=== PATIENT | female | born 1990 | race Caucasian/White ===

== ENCOUNTER 2019-08-18 11:06 | Emergency (ER) | payer SELFPAY ==
[2019-08-18 11:49] VITALS: BP 131/92; PULSE 106; RESP 16; TEMP 37.1; O2SAT 98; BMI 27.3
--- NOTE | 2019-08-18 12:20 | XR_ITS ---
WS: [id number] Chest 2 views, 08/18/2019 Clinical Data: short of breath Comparison: Portable chest, 06/29/2016. Findings: No nodules, masses or effusions are seen. The heart is normal. The pulmonary vascularity is not increased. No pneumonia or pneumothorax is seen. XR/XR chest 2V* [id number] Impression: Negative chest.
--- NOTE | 2019-08-18 12:39 | W.ED.URI ---
HPI - URI/Sore Throat General: Chief Complaint: Upper Respiratory Infection Stated Complaint: bady ache/fevers Time Seen by Provider: 08/18/19 12:30 Source: patient Mode of arrival: ambulatory Limitations: no limitations History of Present Illness: HPI Narrative: Patient comes in with a 3-day history of cough and fever. Patient has been exposed to the flu. Patient was concerned for pneumonia. Patient reports no chronic medical history. Associated symptoms: Reports fever(s) Review of Systems General: Reports: 10 or more systems reviewed and unremarkable except in HPI and below Const: Reports: fever Resp: Reports: non-productive cough PFSH ED PFSH: Social History Smoking and tobacco status: current every day smoker Female Reproductive History: Date of last menstrual period: 08/04/19 Physical Exam Const: COMMON NORMALS: no apparent distress and oriented x3 GENERAL APPEARANCE: cooperative HENMT: COMMON NORMALS: normocephalic, external ears normal, EAC's normal, TM's normal bilaterally and external nose normal HEAD & SCALP: normal to inspection and normocephalic FACE & SINUS: normal facial exam NOSE: external nose normal GENERAL EAR: hearing not grossly impaired EXTERNAL EAR: Yes external ears normal EXTERNAL AUDITORY CANAL: EAC's normal TYMPANIC MEMBRANE: TM's normal bilaterally MOUTH: oral and palatal mucosa normal THROAT: posterior oropharynx abnormal erythema Eye: COMMON NORMALS: PERRL and EOMs intact bilaterally PUPIL: Yes PERRL Neck/C-Spine: COMMON NORMALS: full ROM and no lymphadenopathy Lymph: LYMPHATIC: no lymphedema noted Chest: COMMONS NORMALS: inspection of chest normal and palpation of chest normal Resp: COMMON NORMALS: normal respiratory effort and clear to auscultation bilaterally AUSCULTATION: clear to auscultation bilaterally Cardio: COMMON NORMALS: regular rate and regular rhythm RATE: regular rate RHYTHM: regular rhythm GI: COMMON NORMALS: normal to inspection, nondistended, normoactive bowel sounds and non-tender : COMMON NORMALS: Yes no CVA tenderness BLADDER/KIDNEY EXAM: Yes no CVA tenderness Back/Pelvis: COMMON NORMALS: no CVA tenderness and thoracic and lumbar spine normal to inspection Extremity: COMMON NORMALS: normal to inspection GENERAL: No edema Neuro: COMMON NORMALS: oriented x3, moves all extremities and no focal motor deficits Psych: COMMON NORMALS: mental status grossly normal and cooperative Skin: COMMON NORMALS: no rashes or lesions noted GENERAL SKIN EXAM: no rashes or lesions noted Course Vital Signs: Vital signs: Vital Signs Temperature 98.7 F 08/18/19 11:49 Pulse Rate 106 H 08/18/19 11:49 Respiratory Rate 16 08/18/19 11:49 Blood Pressure 131/92 08/18/19 11:49 Pulse Oximetry 98 08/18/19 11:49 MDM - URI/Sore Throat MDM Narrative: Medical decision making narrative: Patient comes in with cough and congestion for the last 3 days. Patient reports exposure to the flu. On exam posterior pharynx is slightly erythematous, lungs are clear to auscultation. Differential diagnosis includes pneumonia, influenza, bronchitis, upper respiratory infection. X-rays were negative for any pneumonia. Flu test was negative. Patient was given a dose of Decadron. Encourage plenty of fluids Tylenol and ibuprofen for pain and fever. Reviewed usual course for the flu and recommendations for treatment of. Patient reports understanding agreed to plan. Lab Data: Labs: Lab Results 08/18/19 Range/Units 12:46 Influenza Type A A g Negative (Negative) POC Influenza B Ag Negative (Negative) Discharge Plan Discharge Patient Disposition: Home, Self-Care Clinical Impression: Influenza Condition: Stable Prescriptions: No Action No Known Home Medications RF: 0 Discharge Orders: Discharge Order (Routine); Ordered 08/18/19 Ordered By: Clinton Napier Referrals: YIFAN [Other] Discharge Diet: Usual diet Discharge Activity: Increase activity as tolerated Patient Instructions: Influenza (ED) Activity Restrictions/Additional Instructions: Drink plenty of fluids Acetaminophen and ibuprofen for pain and fever Follow-up with primary care in one week Return to ER as needed for worsening symptoms Stand Alone Forms: Work/School Release Coding Level of Care Code ED Supervisory Historian for Chg Fwd Exam Comprehensive
[2019-08-18] MEDS: dexamethasone 10 mg/mL INJ IM (13:05)
[2019-08-18 13:42] LABS: Influenza A by IFA Negative (Negative); Influenza B by IFA Negative (Negative)
[2019-08-18 14:00] VITALS: BP 98/59; PULSE 109; RESP 17; O2SAT 97
== END 2019-08-18 14:00 | disposition home or self-care (01) ==
LOC: ER 13:05
PROVIDERS: Emergency Provider Nurse Practitioner Family; PCP Nurse Practitioner Family
DX: J11.1 Influenza due to unidentified influenza virus with other respiratory manifestations (principal); F17.210 Nicotine dependence, cigarettes, uncomplicated
CPT/HCPCS: 71046; 87804; 96372; 99282; 99283; J1100

== ENCOUNTER 2019-08-31 13:26 | Emergency (ER) | payer SELFPAY ==
[2019-08-31 13:36] VITALS: BP 111/61; PULSE 84; RESP 16; TEMP 36.9; O2SAT 98; BMI 27.3
[2019-08-31 14:11] VITALS: BP 101/63; PULSE 72; RESP 17; O2SAT 97
--- NOTE | 2019-08-31 14:12 | PC.NURSE ---
Patient reports that she has been sick for about a week and half. Patient states that her symptoms are not getting any better. Patient reports the her right ear now hurts and her cough has got much worse. Patient states she was seen here a week and half ago and was treated like it was the flu.
--- NOTE | 2019-08-31 14:22 | W.ED.GENADLT ---
HPI - General Adult General: Chief complaint: General Medical Stated complaint: Cough/Fever/Earache Time Seen by Provider: 08/31/19 14:15 Source: patient Mode of arrival: ambulatory Limitations: no limitations History of Present Illness: HPI narrative: Patient is a 29-year-old female who presents to ED today with complaints of a productive cough, chest congestion, sinus pain/pressure, nasal congestion, ear pain/pressure, intermittent fevers that have been present over the past approximately 2 weeks. Patient was seen here approximately a week and a half ago and diagnosed with probable influenza. She states she does not seem to be improving. Patient is an everyday smoker. Last fever she states was 48 hours ago. She has not had any vomiting or diarrhea. Onset (ago): day(s) Relieving factors: none Exacerbating factors: none Associated symptoms: Deny chest pain, dyspnea, headache(s), malaise, nausea, rash, palpitations, syncope or vomiting Review of Systems Const: Reports: fever; Denies: chills, body aches, change in appetite, change in weight, fatigue, malaise or night sweats Eyes: Denies: change in vision, blurry vision, photophobia, eye discomfort or eye discharge ENMT: Reports: ear pain, nasal discharge and nasal congestion; Denies: throat pain, enlarged tonsils, painful swallowing, swelling of lips/tongue, oral sores/lesions, ear discharge, post nasal drip or facial/sinus pain Card: Denies: chest pain, palpitations, irregular heart rhythm, edema, lightheadedness, syncope or pre-syncope Resp: Reports: productive cough and chest congestion; Denies: shortness of breath, non-productive cough or coughing up blood GI: Denies: abdominal pain, nausea, vomiting or diarrhea Musc: Denies: neck pain or back pain Skin/Breast: Denies: rash Neuro: Denies: headache, numbness in extremities, weakness in extremities or changes in sensation All/Imm: Denies: facial swelling or seasonal allergies PFS ED PFSH: Social History Smoking and tobacco status: current every day smoker Female Reproductive History: Date of last menstrual period: 08/04/19 Physical Exam Const: COMMON NORMALS: no apparent distress, average body habitus, oriented x3, no limitations, healthy appearing, alert and well nourished HENMT: COMMON NORMALS: normocephalic, head/scalp atraumatic, hearing grossly normal bilaterally, external ears normal, EAC's normal, TM's normal bilaterally, moist oral mucous membranes and oropharynx normal HEAD & SCALP: normocephalic and atraumatic FACE & SINUS: sinus tenderness maxillary (bilaterally) and other (nasal congestion present) EXTERNAL EAR: Yes external ears normal EXTERNAL AUDITORY CANAL: EAC's normal TYMPANIC MEMBRANE: TM's normal bilaterally THROAT: posterior oropharynx normal, tonsils normal and uvula midline Eye: COMMON NORMALS: PERRL, EOMs intact bilaterally, conjunctivae normal and no scleral icterus CONJUNCTIVA: Yes conjunctivae normal PUPIL: Yes PERRL Neck/C-Spine: COMMON NORMALS: full ROM, no lymphadenopathy and no meningeal signs Resp: COMMON NORMALS: normal respiratory effort and clear to auscultation bilaterally AUSCULTATION: clear to auscultation bilaterally OTHER: course sounding cough Cardio: COMMON NORMALS: regular rate and regular rhythm RATE: regular rate RHYTHM: regular rhythm Extremity: COMMON NORMALS: normal to inspection Neuro: COMMON NORMALS: oriented x3 SENSORIUM/ORIENTATION: Yes alert MENINGEAL SIGNS: Yes no meningeal signs Skin: COMMON NORMALS: no rashes or lesions noted GENERAL SKIN EXAM: no rashes or lesions noted Course Vital Signs: Vital signs: Vital Signs Temperature 98.5 F 08/31/19 13:36 Pulse Rate 72 08/31/19 14:11 Respiratory Rate 17 08/31/19 14:11 Blood Pressure 101/63 08/31/19 14:11 Pulse Oximetry 97 08/31/19 14:11 MDM - General Adult Lab Data: Labs: Lab Results 08/31/19 Range/Units 14:39 Influenza Type A A g Negative (Negative) POC Influenza B Ag Negative (Negative) Imaging Data^: CXR: Radiologist's impression: [address] [address] XRay Report Signed Patient: Cynthia Barton Unit #: [id number] : 1990 Age/Sex: 29 / F ADM Date: 08/31/19 Loc: ER Room/Bed: Attending Dr: Ordering Provider/Ordering MD: Ermelinda Grant Date of Service: 08/31/19 Procedure(s): XR chest 1V portable [id number] Accession Number(s): [id number] Report Number: [id number] PROCEDURE INFORMATION: Exam: XR Chest, 1 View Exam date and time: 08/31/2019 2:50 PM Age: 29 years old Clinical indication: Cough and fever; Additional info: Cough/congestion, fever TECHNIQUE: Imaging protocol: XR of the chest Views: 1 view. Other technique: Frontal portable upright view of the chest. COMPARISON: CR XR chest 2V* [id number] 08/18/2019 12:37 PM FINDINGS: Lungs: Patchy left infrahilar retrocardiac airspace opacity. The lungs are otherwise clear bilaterally. The pulmonary vasculature is normal. Pleural space: No pleural effusion. No pneumothorax. Heart/Mediastinum: The heart is normal in size and contour. Mediastinum: Stable. Bones/joints: Stable. XR/XR chest 1V portable [id number] IMPRESSION: Patchy left infrahilar retrocardiac airspace opacity. Pneumonitis is difficult to exclude. Clinical correlation is recommended. Dictated By: Nadeem Guan MD Signed By: Nadeem Guan MD Signed Date/Time: 08/31/191538 DD/ 37 Discharge Plan Discharge Patient Disposition: Home, Self-Care Clinical Impression: Viral URI with cough Pneumonia Qualifiers: Pneumonia type: due to unspecified organism Laterality: left Lung location: unspecified part of lung Qualified Code(s): J18.9 - Pneumonia, unspecified organism Condition: Stable Prescriptions: New promethazine-codeine 6.25-10 mg/5 mL syrup 5 ml PO Q6H PRN (Reason: cough) Qty: 100 RF: 0 doxycycline monohydrate 100 mg capsule 100 mg PO Q12H 10 Days Qty: 20 RF: 0 Discharge Orders: Discharge Order (Routine); Ordered 08/31/19 Ordered By: Ermelinda Grant Referrals: YIFAN [Other] Discharge Diet: Usual diet Discharge Activity: Increase activity as tolerated Patient Instructions: Viral Syndrome (ED), Pneumonia (ED), Upper Respiratory Infection - Adult Activity Restrictions/Additional Instructions: Return to the emergency department for worsening symptoms, uncontrollable fevers, worsening cough, shortness of breath, chest pains, feeling generally worse, or any other symptoms you may have. Coding Level of Care Code ED Construction Services Technician for Chg Fwd Exam Comprehensive
--- NOTE | 2019-08-31 14:30 | XRR_ITS ---
PROCEDURE INFORMATION: Exam: XR Chest, 1 View Exam date and time: 08/31/2019 2:50 PM Age: 29 years old Clinical indication: Cough and fever; Additional info: Cough/congestion, fever TECHNIQUE: Imaging protocol: XR of the chest Views: 1 view. Other technique: Frontal portable upright view of the chest. COMPARISON: CR XR chest 2V* [id number] 08/18/2019 12:37 PM FINDINGS: Lungs: Patchy left infrahilar retrocardiac airspace opacity. The lungs are otherwise clear bilaterally. The pulmonary vasculature is normal. Pleural space: No pleural effusion. No pneumothorax. Heart/Mediastinum: The heart is normal in size and contour. Mediastinum: Stable. Bones/joints: Stable. XR/XR chest 1V portable [id number] IMPRESSION: Patchy left infrahilar retrocardiac airspace opacity. Pneumonitis is difficult to exclude. Clinical correlation is recommended.
[2019-08-31 15:09] LABS: Influenza A by IFA Negative (Negative); Influenza B by IFA Negative (Negative)
[2019-08-31 15:55] VITALS: BP 107/72; PULSE 63; RESP 18; O2SAT 99
== END 2019-08-31 15:58 | disposition home or self-care (01) ==
PROVIDERS: Emergency Provider Physician Assistant; PCP Nurse Practitioner Family
DX: J06.9 Acute upper respiratory infection, unspecified (principal); R05 Cough; F17.200 Nicotine dependence, unspecified, uncomplicated
CPT/HCPCS: 12345; 71045; 87804; 99281; 99283

== ENCOUNTER 2023-03-07 17:44 | Emergency (ER) | payer OTHER, SELFPAY ==
[2023-03-07 17:47] VITALS: BP 124/93; PULSE 103; RESP 18; TEMP 36.6; O2SAT 97; BMI 23.0
--- NOTE | 2023-03-07 18:08 | W.ED.PSYCHS ---
HPI - Psych General: Chief Complaint: Psychiatric Symptoms Stated Complaint: si Time Seen by Provider: 03/07/23 18:03 History of Present Illness: Patient presents to the ER by law enforcement mental health evaluation. Patient went to court today and found that she is having to stay in group home for 40 days now she stressed out about losing her child in her house and is very emotional and stressed out. Patient denies any suicidal or homicidal ideation. Review of Systems General: Reports: 10 or more systems reviewed and unremarkable except in HPI and below PFSH ED PFSH: Social History Smoking and tobacco status: current every day smoker Physical Exam Const: COMMON NORMALS: no acute distress, average body habitus, patient oriented x3, no limitations, healthy appearing, alert and well nourished HENMT: COMMON NORMALS: normocephalic, atraumatic, hearing grossly normal bilaterally, external ears normal, Normal external nose present and moist oral mucous membranes HEAD & SCALP: normocephalic and atraumatic NOSE: Normal external nose present EXTERNAL EAR: Yes external ears normal Eye: COMMON NORMALS: Equal, round and reactive pupils present, EOMs intact bilaterally, conjunctivae normal and no scleral icterus CONJUNCTIVA: Yes conjunctivae normal PUPIL: Yes Equal, round and reactive pupils present Neck/C-Spine: COMMON NORMALS: full ROM, no lymphadenopathy, supple, no meningeal signs, no JVD and Thyroid normal THYROID: Thyroid normal Chest: COMMONS NORMALS: normal inspection of the chest and normal palpation of entire chest wall Resp: COMMON NORMALS: normal respiratory effort, No retractions, No use of accessory muscles and clear to auscultation bilaterally AUSCULTATION: clear to auscultation bilaterally Cardio: COMMON NORMALS: no JVD, regular rate, regular rhythm, S1 normal heart sound present, S2 normal heart sound present, No gallops present (Cardio), No clicks present (Cardio), No murmurs present (Cardio) and No rub (Cardio) RATE: regular rate RHYTHM: regular rhythm HEART SOUNDS: S1 normal heart sound present and S2 normal heart sound present GI: COMMON NORMALS: Normal to inspection, nondistended, normoactive bowel sounds present, Soft to palpation, non-tender, No hepatosplenomegaly present and no masses PALPATION: Yes Soft to palpation and Yes No hepatosplenomegaly present : COMMON NORMALS: Yes no CVA tenderness BLADDER/KIDNEY EXAM: Yes no CVA tenderness Back/Pelvis: COMMON NORMALS: no CVA tenderness Neuro: COMMON NORMALS: patient oriented x3 SENSORIUM/ORIENTATION: Yes alert MENINGEAL SIGNS: Yes no meningeal signs Course Vital Signs: Vital signs: Vital Signs Temperature 97.8 F 03/07/23 17:47 Pulse Rate 103 H 03/07/23 17:47 Respiratory Rate 18 03/07/23 17:47 Blood Pressure 124/93 03/07/23 17:47 Pulse Oximetry 97 03/07/23 17:47 Oxygen Delivery Me thod Room Air 03/07/23 17:47 MDM - Psych Medical Decision Making Patient went to group home today and found no chest pain 40 more days in group home and is afraid to lose her house and her kid. Physical exam was performed lab work was obtained patient denied making suicidal homicidal ideations. Patient be discharged back to group home. Differential Diagnosis Likely suicidal ideation; Unlikely acute psychosis, chronic schizophrenia, bipolar disorder, depression, drug-induced psychotic disorder or acute anxiety Medical Records I reviewed the patient's medical records. Lab Data I reviewed the patient's lab results. 03/07/23 18:23 03/07/23 18: Laboratory Results WBC 7.85 10^3/uL (3.29-11.43) 03/07/23 18: RBC 4.12 10^6/uL (3.85-5.65) 03/07/23 18: Hgb 13.20 g/dL (11.27-16.99) 03/07/23 18: Hct 38.6 % (36-47) 03/07/23 18: MCV 93.7 fl (85-98) 03/07/23 18: MCH 32.0 pg (27-33) 03/07/23 18: MCHC 34.2 g/dL (30-55) 03/07/23 18: RDW 11.9 % (12.1-15.1) L 03/07/23 18: Plt Count 350 10^3/cmm (157-399) 03/07/23 18: MPV 10.0 fL (7.4-10.4) 03/07/23 18: Neut % (Auto) 75.1 % 03/07/23 18:23 Lymph % (Auto) 13.1 % 03/07/23 18:23 Carter % (Auto) 10.3 % 03/07/23 18: Eos % (Auto) 0.8 % 03/07/23 18: Baso % (Auto) 0.3 % 03/07/23 18:23 Neut # (Auto) 5.90 10^3/uL (1.8-7.7) 03/07/23 18: Lymph # (Auto) 1.0 10^3/uL (0.8-4.8) 03/07/23 18: Carter # (Auto) 0.8 10^3/uL (0.2-0.9) 03/07/23 18: Eos # (Auto) 0.1 10^3/uL (0.0-0.8) 03/07/23 18: Baso # (Auto) 0.0 10^3/uL (0.0-0.1) 03/07/23 18: Nucleated RBC % (auto) 0 % 03/07/23 18: Nucleated RBCs # 0.0 /100WBC 03/07/23 18: Sodium 138 mmol/L (136-145) 03/07/23 18: Potassium 4.2 mmol/L (3.5-5.1) 03/07/23 18: Chloride 103 mmol/L (98-107) 03/07/23 18: Carbon Dioxide 27 mmol/L (22-29) 03/07/23 18: Anion Gap 12.2 (5-19) 03/07/23 18: BUN 12 mg/dL (6-20) 03/07/23 18: Creatinine 0.7 mg/dL (0.5-0.9) 03/07/23 18: GFR Calculation 97.0 mL/min (90-130) 03/07/23 18: Glucose 91 mg/dL (65-115) 03/07/23 18: Calculated Osmolality 285 mOsm/kg (285-295) 03/07/23 18: Calcium 9.2 mg/dL (8.5-10.5) 03/07/23 18: Total Bilirubin 0.4 mg/dL (0.15-1.2) 03/07/23 18:23 AST 18 U/L (0-32) 03/07/23 18: ALT 13 U/L (0-33) 03/07/23 18:23 Alkaline Phosphatase 82 U/L (35-105) 03/07/23 18:23 Total Protein 8.3 g/dL (6.6-8.7) 03/07/23 18: Albumin 4.5 g/dL (3.5-5.2) 03/07/23 18: Globulin 3.8 g/dL (1.3-4.6) 03/07/23 18:23 HCG, Qual Negative (Negative) 03/07/23 19:00 Salicylates < 0.3 mg/dL (3-10) L 03/07/23 18: Acetaminophen < 5.0 ug/mL (10-30) L 03/07/23 18:23 Ethyl Alcohol < 10 mg/dL (0-10) 03/07/23 18:23 No radiology studies performed this visit Discharge Plan Discharge Patient Disposition: Home Clinical Impression: Depression, Acute anxiety Condition: Stable Prescriptions: No Action promethazine-codeine 6.25-10 mg/5 mL syrup 5 ml PO Q6H PRN (Reason: cough) Qty: 100 0RF Discharge Orders: Discharge ED (Routine); Ordered 03/07/23 Ordered By: Viral Garcia Referrals: Mara Candelario FNP [Primary Care Provider] - Patient Instructions: Depression (ED), Anxiety (ED) Activity Restrictions/Additional Instructions: Patient was felt to be medically stable and fit for confinement. Patient will be discharged back into police custody. Coding Level of Care Code ED Drilling Engineer for Rufino Collazo
[2023-03-07 19:05] LABS: Basophils % 0.3 %; Eosinophils # 0.1 10^3/uL (0.0-0.8); Eosinophils % 0.8 %; Hematocrit 38.6 % (36-47); Lymphocytes % 13.1 %; Mean Corpuscular HGB Conc 34.2 g/dL (30-55); Mean Corpuscular Volume 93.7 fl (85-98); Monocytes # 0.8 10^3/uL (0.2-0.9); Monocytes % 10.3 %; Neutrophils % 75.1 %; Nucleated Red Blood Cells % 0 %; Platelet Count 350 10^3/cmm (157-399); Red Blood Count 4.12 10^6/uL (3.85-5.65); Red Cell Distribution Width 11.9 % (12.1-15.1); White Blood Count 7.85 10^3/uL (3.29-11.43)
[2023-03-07 19:10] LABS: HCG Qualitative Urine. Negative (Negative)
[2023-03-07 19:25] LABS: Alanine Aminotransferase 13 U/L (0-33); Albumin Level 4.5 g/dL (3.5-5.2); Alkaline Phosphatase 82 U/L (35-105); Anion Gap 12.2 (5-19); Aspartate Amino Transferase 18 U/L (0-32); Blood Urea Nitrogen 12 mg/dL (6-20); Calcium 9.2 mg/dL (8.5-10.5); Carbon Dioxide 27 mmol/L (22-29); Chloride 103 mmol/L (98-107); Globulin 3.8 g/dL (1.3-4.6); Glucose 91 mg/dL (65-115); Osmolality Calculated 285 mOsm/kg (285-295); Potassium 4.2 mmol/L (3.5-5.1); Sodium 138 mmol/L (136-145); Total Bilirubin 0.4 mg/dL (0.15-1.2); Total Protein 8.3 g/dL (6.6-8.7)
[2023-03-07 19:30] LABS: Acetaminophen < 5.0 ug/mL (10-30); Alcohol Level < 10 mg/dL (0-10); Salicylate < 0.3 mg/dL (3-10)
== END 2023-03-07 20:35 | disposition home or self-care (01) ==
PROVIDERS: Emergency Provider Emergency Medicine; PCP Nurse Practitioner Family
DX: F32.A Depression, unspecified (principal); F41.9 Anxiety disorder, unspecified; F17.210 Nicotine dependence, cigarettes, uncomplicated
CPT/HCPCS: 36415; 80053; 80307; 81025; 85025; 99283

== ENCOUNTER 2023-05-11 18:23 | Emergency (ER) | payer OTHER, SELFPAY ==
[2023-05-11 18:30] VITALS: BP 118/81; PULSE 103; RESP 16; TEMP 36.7; O2SAT 98; BMI 23.8
--- NOTE | 2023-05-11 19:37 | W.ED.ALLEREA ---
HPI - Allergic Reaction General: Chief complaint: Allergic Reaction Stated complaint: allergic reaction Time Seen by Provider: 05/11/23 19:37 History of Present Illness: HPI narrative: 33-year-old female presents emergency department with complaints of a rash and irritation to her lips after being around poison zandra that she was burning yesterday. She states that has continued to worsen today. She states she feels like her tongue is slightly swollen she did take Benadryl prior to coming to the emergency department. She states she took that this morning and it did help a little bit but she is concerned as the rash Has spread out over her face more. She denies difficulty with swallowing or breathing at present. She denies nausea or vomiting. Review of Systems General: Reports: 10 or more systems reviewed and unremarkable except in HPI and below Skin/Breast: Reports: rash PFSH ED PFSH: Social History Smoking and tobacco/nicotine status: current every day tobacco/nicotine user Female Reproductive History: Date of last menstrual period: 05/04/23 Physical Exam Narrative: EXAM NARRATIVE: Constitutional: the patient appears well nourished and normally developed. Vital signs as documented. HENMT: head exam is unremarkable. No scleral icterus or corneal arcus noted. Neck is without jugular venous distension, thyromegaly, or carotid bruits. Carotid upstrokes are brisk bilaterally. Lungs are clear to auscultation and percussion. Cardiac exam reveals the PMI to be normally sized and situated. Rhythm is regular. First and second heart sounds normal. No murmurs, rubs or gallops. Abdominal exam reveals normal bowel sounds, no masses, no organomegaly and no aortic enlargement. Extremities are non-edematous and both femoral and pedal pulses are normal. Skin: Erythematous rash covering the face on the chin and both cheeks, small superficial pustules consistent with contact dermatitis noted. There is no irritation to the eyes or the oropharynx at present. Course Vital Signs: Vital signs: Vital Signs Temperature 98.1 F 05/11/23 18:30 Pulse Rate 88 05/11/23 21:23 Respiratory Rate 14 05/11/23 21:23 Blood Pressure 112/67 05/11/23 20:53 Pulse Oximetry 100 05/11/23 21:23 Oxygen Delivery Me thod Room Air 05/11/23 20:53 MDM - Allergic Reaction Medical Decision Making Physical exam completed and documented, findings are consistent with contact dermatitis I will provide intramuscular Benadryl and corticosteroid as well as a written prescription for prednisone at the time of discharge. Medical Records I reviewed the patient's medical records. No radiology studies performed this visit Discharge Plan Discharge Patient Disposition: Home Clinical Impression: Contact dermatitis and eczema due to plant Condition: Stable Prescriptions: New prednisone 20 mg tablet 40 mg PO DAILY 5 Days Qty: 10 0RF No Action promethazine-codeine 6.25-10 mg/5 mL syrup 5 ml PO Q6H PRN (Reason: cough) Qty: 100 0RF Discharge Orders: Discharge ED (Routine); Ordered 05/11/23 Ordered By: Billy Barker Referrals: Mara Candelario FNP [Primary Care Provider] - Discharge Diet: Advance as tolerated Discharge Activity: Resume usual activity Patient Instructions: Opioid Safety, Pain Management Activity Restrictions/Additional Instructions: Activity Restrictions/Additional Instructions: Thank you for choosing [facility] for your healthcare needs today. Please realize that you were seen in the Emergency Department and that we are providing you with an emergency medical screening exam and this may not be complete and all inclusive of all the testing and or medical work-up that you may need to determine your ailment or severity of your illness. It is very important that you follow-up as instructed with your Primary care provider or Specialist for additional evaluation and to discuss your medical treatment plan. You may return to the Emergency Department should you have concerns or if your condition changes or worsens in any way. Coding Level of Care Code ED Shirt Maker for Rufino Collazo
[2023-05-11] MEDS: diphenhydrAMINE 50 mg/mL SDV 1mL IM (20:51)
[2023-05-11 20:53] VITALS: BP 112/67; PULSE 100; RESP 16; O2SAT 100
[2023-05-11] MEDS: methylPREDNISolone sod succ 40 mg/mL INJ 60 MG IM (21:04)
[2023-05-11 21:23] VITALS: PULSE 88; RESP 14; O2SAT 100
== END 2023-05-11 21:29 | disposition home or self-care (01) ==
PROVIDERS: Emergency Provider Internal Medicine; PCP Nurse Practitioner Family
DX: L25.5 Unspecified contact dermatitis due to plants, except food (principal); Z72.0 Tobacco use
CPT/HCPCS: 96372; 99284; J1200; J2920